=== PATIENT | male | born 1950 | race Caucasian/White ===

== ENCOUNTER 2016-09-11 08:43 | Inpatient (IN) | payer MEDICARE, OTHER ==
--- NOTE | ~2016-09-11 | DS ---
Unit #: [id number] #: [id number] Patient: SONY NO [id number] [address] [place], [place] [address] [id number] MR#: [id number] NAME: SONY NO ROOM: 447 Age: 66 Sex: M Admission Date: 09/11/2016 : 1950 Discharge Date: 09/14/2016 Attending Physician: Melquiades Field M.D. Primary Care Physician: Jose Juan Zavaleta DISCHARGE SUMMARY CHIEF COMPLAINT Right foot deformity. HISTORY OF PRESENT ILLNESS The patient is a 66-year-old male with non-diabetic Charcot neuroarthropathy who has undergone previous attempted right pantalar fusion two years ago complicated by fracture above his plate. He underwent internal fixation of the tibial shaft fracture with a medial plate. The fracture went on to heal but he developed infection of the hardware. The hardware was removed and the patient then developed pseudarthrosis to his right ankle with aggressive displacement of the ankle and heal into valgus. The patient is now to undergo revision and pantalar fusion. He has undergone recent distal tibial bone biopsy to rule out osteomyelitis and all cultures and bone biopsies were negative for chronic infection. HOSPITAL COURSE The patient was taken to the operating room on the date of admission where he underwent hardware removal from the right lower extremity and revision right pantalar fusion using an intramedullary nail and cannulated screws. There were no operative complications. He had a stable postoperative course. He was seen by physical therapy on a daily basis and instructed on how to remain non-weight bearing on the affected side. Dressing was changed on the second postoperative day. Wounds were healing well. Although his dressings smelled of pseudomonas, the wounds did not appear infected. I started him empirically on Levaquin 750 mg p.o. daily for a ten day course. Hematocrit was 30.9% on the second postoperative day. He was ready for discharge on 09/14/2016 for rehabilitation. FINAL DIAGNOSIS Right Charcot ankle. OPERATION PERFORMED Right revision pantalar fusion 09/24/2016. DISPOSITION AND RECOMMENDATIONS 1. The patient is discharged to rehabilitation. He will continue physical therapy and occupational therapy at that location. He will remain strictly non-weight bearing on the right leg for three months. Dressings should be kept clean, dry and intact. The patient should continue elevation of the right leg. 2. Discharge medications are as follows: a) Ventolin inhaler, two puffs q.4 hours p.r.n. shortness of breath. b) Lyrica 150 mg p.o. t.i.d. Unit #: [id number] #: [id number] Patient: SONY NO c) Amitriptyline 50 mg p.o. q.i.d. d) Effexor 150 mg p.o. b.i.d. e) Acidophilous one cap p.o. b.i.d. f) Meclizine 25 mg p.o. t.i.d. g) Zyrtec p.o. daily. h) Diphenhydramine 25 mg p.o. b.i.d. i) Mirapex 0.5 mg p.o. q. h.s. j) Lopressor 50 mg p.o. b.i.d. k) Colace 100 mg p.o. b.i.d. l) Lasix 20 mg p.o. q. a.m. m) Saline nasal spray p.r.n. n) Pravastatin 20 mg p.o. q. h.s. o) Iron 65 mg p.o. b.i.d. p) Polyvinyl alcohol Refresh eyedrops, two drops both eyes p.r.n. q) Modafinil 200 mg p.o. q. a.m. r) Multivitamins, one p.o. daily. s) Percocet 10/325, one or two p.o. q.4 hours p.r.n. pain. t) Omeprazole 20 mg p.o. q. a.m. u) Potassium chloride 20 mEq p.o. daily. v) Baclofen 10 mg p.o. t.i.d. w) Vitamin D 50,000 units p.o. weekly on . x) Vitamin B12 1000 mcg p.o. daily. y) Vicks vapor inhaler as needed. z) Xarelto 10 mg p.o. daily for 12 days. 3. Follow up in my office in ten days for dressing change, suture removal and application of a cast. Dictated by.Albert Field M.D. RT/df TD: 09/13/2016 09:07 JOB #: [id number] DISCHARGE SUMMARY X Melinda Field MD DISCHARGE SUMMARY
--- NOTE | ~2016-09-11 | OR ---
Unit #: [id number] #: [id number] Patient: SONY NO [id number] [address] [place], [place] [address] [id number] I MR#: [id number] NAME: SONY NO ROOM: [facility] Date of Procedure: 09/11/2016 Admission Date: 09/11/2016 Surgeon: Melquiades Field M.D. : 1950 Attending Physician: Melquiades Field M.D. Primary Care Physician: Jose Juan Zavaleta OPERATIVE REPORT PREOPERATIVE DIAGNOSES 1. Right Charcot ankle. 2. Right ankle and foot retained hardware. 3. Right ankle pseudarthrosis. POSTOPERATIVE DIAGNOSES 1. Right Charcot ankle. 2. Right ankle and foot retained hardware. 3. Right ankle pseudarthrosis. PROCEDURES PERFORMED 1. Right revision pantalar fusion (79403). 2. Right foot hardware removal (). ASSISTANTS MD Haider and BENJAMIN Leyva. ANESTHESIA Popliteal saphenous block and general. INDICATIONS FOR SURGERY The patient is a 66-year-old obese male with nondiabetic Charcot neuroarthropathy, who has undergone previous attempted pantalar fusion of the right ankle 2 years ago complicated by fracture above his plate. He then underwent internal fixation of his tibial shaft fracture. The fracture went on to heal, but he developed an infection of his hardware. Hardware was removed and then the patient developed pseudoarthrosis of his right ankle with progressive displacement of the ankle and heel into valgus. The patient is now to undergo revision pantalar fusion. He has undergone recent right distal tibial bone biopsy to rule out osteomyelitis and deep infection. DESCRIPTION OF PROCEDURE The patient was taken to the operating room following popliteal saphenous block to the right leg. He was placed in supine position. General anesthetic was induced. The right leg was identified as the correct operative extremity during the time-out procedure. The IV antibiotic protocol was followed. The right leg was then prepped and draped in the usual sterile fashion. Ioban was placed over a medial distal tibial wound, which was slow in healing following the bone biopsy. The old incisions and scars were used to make our incisions. A lateral longitudinal incision was made over the distal tibia crossing the sinus Unit #: [id number] #: [id number] Patient: SONY NOi to end at the fourth metatarsal base. The subcutaneous tissue was divided and sharp dissection was used until we had exposed the distal tibia. The distal tibia was exposed with subperiosteal dissection. The old medial scar was used to make a medial ankle incision measuring 8 cm. The subcutaneous tissue was divided. The medial malleolus was exposed with subperiosteal dissection. Intraoperative C-arm fluoroscopy documented that there was marked erosion of the lateral tibial plafond and at the medial malleolus was overly long. Therefore, the microsagittal saw was used to resect the distal 2.5 cm of the medial malleolus. A piece of bone was morselized to be utilized for autogenous bone graft later in the case. The aerobic and anaerobic cultures were taken from the ankle joint. There were rice bodies in the joint fluid and I think this did not represent infection, but in fact represented Charcot joint fluid. The power osteotome, curved curettes, and rongeurs were utilized to remove the fibrinous material from both sides of the ankle joint. The talus was completely gone. The fibrinous layer overlying the calcaneus was removed with the power osteotome. The underlying subchondral bone was feathered with the power osteotome. The osteotome was used to level of the distal tibia out of valgus. The joint was then positioned appropriately for fusion of the tibial calcaneal articulation. A 3 cm incision was made in the plantar inferior heel and a sharp guide pin was placed through the calcaneus and then into the center of the distal tibia and into the center of the distal tibial intramedullary canal. Proper pin position was confirmed with C-arm fluoroscopy. The [employer] Valor intramedullary nail system was utilized. The one-step reamer was used and then the distal tibial canal was reamed sequentially up to a diameter of 12.5 mm. A 30 cm long Valor nail measuring 11.5 mm in diameter was then impacted into place. The outrigger drill guide was used to place 2 locking screws through the distal tibial shaft, one was placed in a static position and the second was placed in a dynamic position. The screws were placed from medial to lateral. The outrigger drill guide was then positioned, so that a lateral to medial calcaneal screw was placed. The compression device was used. Prior to using the compression device, 3 mL of Augment platelet derived growth factor calcium phosphate granules were placed in the tibial calcaneal articulation fusion site and all of the autogenous bone graft taken from the medial malleolus was also packed medially and laterally into this fusion site. The compression device was then deployed. A second posterior to anterior calcaneal screw was placed using the outrigger drill guide. Excellent fixation was achieved. The midfoot was then fused to the distal tibia using 2 crossed OrthoHelix 7.0 mm diameter cannulated screw. One screw was placed from distal medial to posterior superior and purchased the posteromedial cortex of the distal tibia. A second screw was placed from the cuboid across the fusion mass into the distal tibia to purchase the posterior cortex. Excellent fixation was achieved. It should be noted that throughout the case, the 3 previously placed cannulated screws were removed with cannulated screwdrivers, one screw was placed in the calcaneus, a second screw was placed in the medial midfoot and a third screw was placed in the lateral mid foot. These were all removed with a cannulated screwdriver under C-arm fluoroscopic control. The tourniquet was then released. Total tourniquet time of 1 hour 50 Unit #: [id number] #: [id number] Patient: SONY NO. Bleeding was controlled with electrocautery. Deep tissues were closed with 2-0 Vicryl. Subcutaneous tissue was closed with 3-0 Vicryl and skin was closed with 3-0 nylon horizontal mattress sutures. Xeroform gauze dressing, sponges, Webril, and a posterior fiberglass splint were applied. The patient was then transported to the recovery room in stable condition. ESTIMATED BLOOD LOSS Minimal. COMPLICATIONS None. SPECIMENS Aerobic and anaerobic cultures of the ankle joint. Dictated by.Barbara Lackey/remberto TD: 09/12/2016 05:29 JOB #: [id number] OPERATIVE REPORT X Melinda Field MD PROCEDURE OPERATIVE NOTE
--- NOTE | ~2016-09-11 | HP ---
Unit #: [id number] #: [id number] Patient: SONY NO [id number] [address] [address] [id number] MR#: [id number] NAME: SONY NO ROOM: Age: Sex: M Admission Date: 09/11/2016 : 1950 Attending Physician: Melquiades Field M.D. Primary Care Physician: Jose Juan Zavaleta HISTORY AND PHYSICAL CHIEF COMPLAINT Right leg pain and deformity. HISTORY OF PRESENT ILLNESS The patient is a 66-year-old male with history of bilateral nondiabetic Charcot neuroarthropathy of the feet and ankles. He has undergone previous right pantalar fusion of the right lower extremity in March 2015. The patient developed a fracture above his plate, which was treated with a long medial plate. The patient then developed infection of his hardware and all hardware had to be removed. The patient had ongoing pain and swelling in the right leg. A combination technetium and white blood cell labeled study showed changes consistent with possible osteomyelitis of the tibia. Three months ago, the patient underwent open biopsy of the tibia, which showed no evidence of osteomyelitis. The patient is now to undergo revision right pantalar fusion with removal of hardware using an intramedullary nail and beaming screws. PAST MEDICAL HISTORY Remarkable for nondiabetic peripheral neuropathy, bilateral Charcot feet, morbid obesity, sleep apnea, hypertension, gastroesophageal reflux disease, and arthritis of both knees. HOME MEDICATIONS 1. Elavil. 2. Aspirin. 3. Baclofen. 4. Benazepril. 5. Hydrochlorothiazide. 6. Clonazepam. 7. Iron. 8. Vitamin D. 9. Colace. 10. Lasix. 11. Lisinopril. 12. Lyrica. 13. Relafen. 14. Omeprazole. 15. Potassium chloride. 16. Oxycodone. 17. Propranolol. 18. Venlafaxine. 19. Ventolin inhaler. ALLERGIES Unit #: [id number] #: [id number] Patient: SONY NO None. PAST SURGICAL HISTORY Bilateral pantalar fusion, right distal tibial shaft ORIF, right ankle hardware removal, right distal tibial bone biopsy, tonsillectomy, and knee replacement. SOCIAL HISTORY The patient is a social drinker. He is a nonsmoker. He is . FAMILY HISTORY Hypertension, arthritis, COPD, and stroke. REVIEW OF SYSTEMS Unremarkable. PHYSICAL EXAMINATION GENERAL: This is an obese, anxious male in no acute distress. HEENT: Pharynx is clear. NECK: Supple without masses. HEART: Reveals a regular sinus rhythm without murmurs or gallops. LUNGS: Clear. ABDOMEN: Soft and nontender without masses or organomegaly. EXTREMITIES: Evaluation of the right lower extremity shows marked heel valgus measuring 20 degrees and forefoot abduction. There is a healing anteromedial wound over the tibial shaft measuring 6 cm x 1 cm in width, which is filled with healthy appearing granulation tissue. Pulses are intact. Sensation is decreased in a global distribution. There is marked edema of the right lower extremity. DIAGNOSTIC STUDIES IMAGING: X-rays of the right ankle taken nonweightbearing show two large diameter screws fixating the midfoot, one from medial and one from lateral. One screw is penetrating up into the region of the distal tibia from the calcaneus. The talus appears to be completely gone. There is erosion of the distal tibia laterally. ADMITTING DIAGNOSIS 1. Right ankle pseudoarthrosis. 2. 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 PLAN The patient will undergo removal of hardware. He will then undergo pantalar fusion using an intramedullary nail, large diameter screws, and beaming screws from the metatarsals into the tibia. This procedure was described along with the risks of bleeding, infection, nerve damage, need for further surgery in the future, prolonged recovery time, deep venous thrombosis, pulmonary embolism, anesthetic complications, amputations, and pseudoarthrosis. He understands the above risks and agrees to proceed. Dictated by Barbara Wilson/chalino TD: 09/11/2016 06:20 Unit #: [id number] #: [id number] Patient: SONY NO JOB #: [id number] HISTORY AND PHYSICAL X Melinda Field MD X HISTORY AND PHYSICAL
--- NOTE | ~2016-09-11 | A ---
[facility] Nutrition Therapy DATE: 09/12/16 Patient: SONY NO Physician: ALEKSANDRA Address: [address] [facility] Room/Bed: [address] [place] [address], Zip: [place] [phone] Admit Date: 09/11/16 Date of : [birth year] Height: 6 0 Weight: 310 141 NUTRITIONAL ASSESSMENT: REASON: PT SEEN FOR DIET EDUCATION PT SCREENED FOR ONE NUTRITION RISK PT RE: PRESSURE ULCER/NON-HEALING WOUND + HIGH BMI NOTE HT: 6'0", WT: 310# (141 KG), BMI: 42.0 RD PROVIDED WRITTEN AND VERBAL WEIGHT LOSS (+LOW SODIUM DIET) + PRESSURE ULCER DIET EDUCATION. RD PROVIDED TIPS TO MANAGE PRESSURE ULCERS AND AIDE IN WEIGHT LOSS. PT VERBALIZED UNDERSTANDING OF THE TOPIC. PT REPORTED NO DIET QUESTIONS AT THIS TIME. RD TO REMAIN AVAILABLE. RECOMMENDATIONS: 1. RECOMMEND TO CHANGE CURRENT DIET ORDER TO CC+HH TO PROMOTE GRADUAL WEIGHT LOSS TOWARDS HEALTHY BMI (19.0-25.0) OR +/-10%IBW RD WILL F/U PER PROTOCOL Respectfully, DEONTE RUGGIERO MS, RD, LD [employer] [facility] cc: client file
[~2016-09-11 08:43] MED LIST: ACIDOPHILUS1 TA1 PO; ALLERGY RELIEF25 MG PO; AMITRYPTYLINE PO; ASPIRIN EC81 M1 PO; B-121000 MC3 PO; BACLOFEN10 MG PO; BENADRYL25 M3 PO; CEFEPIME-D2 GM/50 ML IV; CEFTRIAXONE2 GM IM/IV; EFFEXOR XR PO; EFFEXOR-XR150 MG PO; FORTAZ; INHA; IRON1 TAB PO; K-DUR20 ME2 PO; KETOTIFEN FUMARA5 ML OU; KLONOPIN PO; KLONOPIN1 MG PO; LASIX PO; LASIX20 MG PO; LISINOPRIL10 MG PO; LYRICA PO; METOPROLOL TAR25 MG PO; MODAFINIL200 MG PO; MOTION RELIEF25 MG PO; OMEPRAZOLE20 M2 PO; OXYCODON-ACETA1 EAC1 PO; PERCOCET 7.5-31 EACH PO; PERCOCET5/325 PO; PRAMIPEXOLE PO; PROPRANOLOL HCL80 M1 PO; REFRESH EYE DRO50 E1 OU; REFRESH5 ML OU; ROCEPHIN2 G/VIAL INJ; SALINE NOSE SPR45 M1; SALINE NOSE SPR45 M1 IH; VANCOMYCIN; VANCOMYCIN2 GM/250 M IV; VENLAFAXINE HC150 M1 PO; VENTOLIN INH; VITAMIN D250000 UNIT PO; VITAMIN D50000 UNIT PO; [UNRECOGNIZED DRUG - OTHER]
[2016-09-12 02:48] LABS: HEMATOCRIT 32.4 % (38.0-50.0); HEMOGLOBIN 10.6 gm/dL (13.0-16.0)
[2016-09-13 03:13] LABS: HEMATOCRIT 30.9 % (38.0-50.0); HEMOGLOBIN 10.1 gm/dL (13.0-16.0)
== END 2016-09-14 11:20 | DRG 493 ==
LOC: CSUR 08:43 → CPACUOF 14:30 → C4B 16:45
PROVIDERS: Orthopaedic Surgery
PROC: 0SGH07Z Fusion of Right Tarsal Joint with Autologous Tissue Substitute, Open Approach (ICD-10-PCS; 2016-09-11)
PROC: 0SGH07Z Fusion of Right Tarsal Joint with Autologous Tissue Substitute, Open Approach (ICD-10-PCS; 2016-09-11)
PROC: 0SGH07Z Fusion of Right Tarsal Joint with Autologous Tissue Substitute, Open Approach (ICD-10-PCS; 2016-09-11)
PROC: 0SGF0ZZ (ICD-10-PCS; 2016-09-11)
PROC: 0SGH04Z Fusion of Right Tarsal Joint with Internal Fixation Device, Open Approach (ICD-10-PCS; 2016-09-11)
PROC: 0SGH04Z Fusion of Right Tarsal Joint with Internal Fixation Device, Open Approach (ICD-10-PCS; 2016-09-11)
PROC: 0SGH04Z Fusion of Right Tarsal Joint with Internal Fixation Device, Open Approach (ICD-10-PCS; 2016-09-11)
PROC: 0SPH04Z Removal of Internal Fixation Device from Right Tarsal Joint, Open Approach (ICD-10-PCS; principal; 2016-09-11 12:30)
PROC: 0QBG0ZZ Excision of Right Tibia, Open Approach (ICD-10-PCS; 2016-09-11 12:30)
DX: M96.0 Pseudarthrosis after fusion or arthrodesis (principal); A52.16 Charcot's arthropathy (tabetic); Z68.41 Body mass index [BMI] 40.0-44.9, adult; E66.01 Morbid (severe) obesity due to excess calories; G62.9 Polyneuropathy, unspecified; M87.871 Other osteonecrosis, right ankle; I10 Essential (primary) hypertension; G47.30 Sleep apnea, unspecified; K21.9 Gastro-esophageal reflux disease without esophagitis; M17.0 Bilateral primary osteoarthritis of knee; Z79.82 Long term (current) use of aspirin; M21.071 Valgus deformity, not elsewhere classified, right ankle; Z88.0 Allergy status to penicillin
CPT/HCPCS: 85014; 85018; 87070; 87075; 87205; 94664; 94760; 97116; 97163; 97530; C1713; C1776; G8978-GP; G8979-GP; G8980-GP; J0131; J0330; J2250; J2270; J2405; J2710; J2795; J3010; J3370

== ENCOUNTER → 2016-10-10 | Outpatient (CLI) | payer MEDICARE, OTHER ==
[~2016-10-10] MED LIST changes: +ACIDOPHILUS1 EAC3 PO; +ALBUTEROL17 GM INH; +AMITRIPTYLINE H50 MG PO; +ANTIVERT PO; +ASPIRIN81 M2 PO; +B-121000 MC1 PO; +BACTRIM DS TAB1 EACH PO; +DOCUSATE SODIU100 MG PO; +EFFEXOR XR150 MG PO; +IRON18 MG PO; +KCL PO; +LOPRESSOR PO; +MIRAPEX PO; +MULTIPLE VITAM1 EAC1 PO; +PERCOCET7.5 PO; +PRAVASTATIN SOD20 MG PO; +PRILOSEC PO; +XARELTO10 MG PO; +ZYRTEC PO; +[UNRECOGNIZED DRUG - OTHER]
[2016-10-10 14:14] LABS: HEMATOCRIT 29.1 % (38.0-50.0); HEMOGLOBIN 9.5 gm/dL (13.0-16.0); MEAN CELL VOLUME 86.9 FL (83-96); MEAN CORPUSCULAR HEMOGLOBIN 28.3 PG (28-34); MEAN CORPUSCULAR HGB CONC 32.5 g/dL (30-36); MEAN PLATELET VOLUME 7.3 FL (6.5-11.5); PLATELET COUNT 411 X10e3 (140-420); RED BLOOD COUNT 3.35 X10e (3.90-5.60); RED CELL DISTRIBUTION WIDTH 16.5 % (11.0-15.5); WHITE BLOOD COUNT 9.1 X10e3 (4.0-10.5)
[2016-10-10 14:40] LABS: CALCIUM SERUM 8.3 mg/dL (8.4-10.2); GLOM FILT RATE Estimated 77.5 mL/min (>60); POTASSIUM 4.2 mmol/L (3.5-5.1)
== END | disposition home or self-care (01) ==
LOC: CLAB 13:39
PROVIDERS: Orthopaedic Surgery
DX: Z01.812 Encounter for preprocedural laboratory examination (principal); M14.671 Charcot's joint, right ankle and foot
CPT/HCPCS: 36415; 80048; 85027; 85652; 86140; 86850; 86900; 86901; 87070; 87075; 87077; 87186; 87205

== ENCOUNTER 2016-10-16 09:42 | Inpatient (IN) | payer MEDICARE, OTHER ==
--- NOTE | ~2016-10-16 | OR ---
Unit #: [id number] #: [id number] Patient: SONY NO [id number] [place] [address] [facility]. [place], [place] [address] [id number] I MR#: [id number] NAME: SONY NO ROOM: 454 Date of Procedure: 10/16/2016 Admission Date: 10/16/2016 Surgeon: Melquiades Field M.D. : 1950 Attending Physician: Melquiades Field M.D. Primary Care Physician: Jose Juan Zavaleta OPERATIVE REPORT PREOPERATIVE DIAGNOSES 1. Right foot osteomyelitis. 2. Infected right Charcot foot. POSTOPERATIVE DIAGNOSES 1. Right foot osteomyelitis. 2. Infected right Charcot foot. PROCEDURE PERFORMED Right ejyvj-hbd-fwrw amputation with immediate postoperative cast (55882). ASSISTANTS [place]. ANESTHESIA General. INDICATIONS FOR SURGERY The patient is a 66-year-old male with nondiabetic peripheral neuropathy and history of bilateral Charcot ankles, who underwent several procedures on his right foot culminating in a revision pantalar fusion 5 weeks ago. Unfortunately, this has gone onto develop a deep infection and the patient now has an unsalvageable foot. He is therefore to undergo duabh-tup-jdbp amputation. DESCRIPTION OF PROCEDURE The patient was taken to the operating room and placed in supine position and general anesthetic was induced. The right leg was identified as the correct operative extremity during the time-out procedure. The IV antibiotic protocol was followed. The right leg was then prepped and draped in the usual sterile fashion. The leg was exsanguinated with gravity and the thigh tourniquet inflated to 300 mmHg. A transverse incision was made over the tibia 14 cm distal to the knee joint. It was then extended in a long posterior flap distally. The tibia was exposed with subperiosteal dissection. The sagittal saw was used to make the tibial cut. The anterior portion of the tibia was beveled with the saw because there was an intramedullary nail in place. A Gigli saw was used to make the posterior portion of the tibial cut. The anterior compartment was then divided. The neurovascular bundle was identified and doubly ligated with 0 silk. The fibula was then exposed subperiosteally and cut 2 cm proximal to the tibial cut. The posterior Unit #: [id number] #: [id number] Patient: SONY NO soft tissues were then divided and the leg was removed. The tibial nail was easily telescoped away from the intramedullary canal of the tibia without requiring removal of any screws. The intramedullary canal of the tibia was cultured for aerobic and anaerobic bacteria. The wounds were then copiously irrigated. The peroneal vessels were doubly ligated with 0 silk. The posterior tibial vessels were doubly ligated with 0 silk. The tibial nerve was then traced proximally and cut as high proximally as possible above the level of the tibial cut. The posterior soft tissues were then beveled with the amputation blade. Again, the wounds were irrigated. The posterior muscle fascia was then repaired to the anterior muscle fascia and periosteum of the tibia with multiple 0 Vicryl fezazg-bp-acgsy sutures. A medium Hemovac drain was placed. Subcutaneous tissue was closed with 2-0 Vicryl. The skin was closed with skin adams. Xeroform gauze, dressing, sponges, Webril cast, padding, and a long leg fiberglass cast were then applied. The patient was then awakened in the operating room and transported to the recovery room in stable condition. ESTIMATED BLOOD LOSS 100 mL. COMPLICATIONS None. SPECIMENS 1. Right leg. 2. Aerobic and anaerobic cultures, right tibial intramedullary canal. Dictated byBarbara Wyatt/remberto TD: 10/17/2016 06:07 JOB #: [id number] OPERATIVE REPORT Page 1 of 1 X Melinda Field MD X PROCEDURE OPERATIVE NOTE
--- NOTE | ~2016-10-16 | CO ---
Unit #: [id number] #: [id number] Patient: SONY NO [id number] [address] [place], [place] [address] [id number] I MR#: [id number] NAME: SONY NO ROOM: 454 Age: 66 Sex: M Admission Date: 10/16/2016 : 1950 Attending Physician: Melquiades Field M.D. Primary Care Physician: Jose Juan Zavaleta Consultation Date: 10/16/2016 CONSULTATION REPORT REASON FOR CONSULTATION Medical management. HISTORY OF PRESENT ILLNESS The patient is a 66-year-old male who earlier this afternoon underwent right soezd-egv-tmzj amputation. This was performed by Dr. Field. The patient in the past had been diagnosed secondary to osteomyelitis as well as MRSA deep within the wound. He was admitted under orthopedic service and subsequently underwent the aforementioned amputation earlier today. PAST MEDICAL HISTORY 1. Nondiabetic peripheral neuropathy, bilateral Charcot. 2. Morbid obesity. 3. Sleep apnea. 4. Hypertension. 5. Gastroesophageal reflux disease. 6. Bilateral knee replacements. 7. Osteoarthritis. 8. History of osteomyelitis. 9. History of hardware removal. 10. Bilateral plantar fusion. 11. Right distal tibial shaft open reduction and internal fixation. 12. Right ankle hardware removal. 13. Right distal tibial bone biopsy. 14. Revision of right aforementioned plantar fusion. 15. Tonsillectomy. 16. Knee replacement. SOCIAL HISTORY The patient is . Social alcohol use. No illicit drug use. Lifelong nonsmoker. FAMILY HISTORY Hypertension, arthritis, chronic obstructive pulmonary disease. ALLERGIES No known drug allergies. HOME MEDICATIONS 1. Elavil. 2. Aspirin. 3. Baclofen. Unit #: [id number] #: [id number] Patient: SONY NO 4. Benazepril. 5. Hydrochlorothiazide. 6. Klonopin. 7. Iron. 8. Vitamin D. 9. Lasix. 10. Lyrica. 11. Potassium. 12. Omeprazole. 13. Relafen. 14. Oxycodone. 15. Propranolol. 16. Ventolin. 17. Effexor. REVIEW OF SYSTEMS Please see history of present illness. Twelve points were reviewed and otherwise negative except for those noted positive in the history of present illness. PHYSICAL EXAMINATION GENERAL: The patient is a 66-year-old male who is slightly confused as he has just returned from the operating room. His is present at bedside. VITALS: Temperature 97.8, pulse 79, respiratory rate 20, blood pressure 93/63. HEENT: Head atraumatic. NECK: Supple. LUNGS: Diminished but clear bilaterally. HEART: S1 and S2 without murmur. ABDOMEN: Distension noted. Nontender. EXTREMITIES: Lower extremity exam, his right lower extremity is wrapped and dressed. Left lower extremity showed 1+ edema. No calf tenderness. DIAGNOSTIC STUDIES LABORATORY: Initial lab studies none. ASSESSMENT Initial admission diagnoses 1. Right foot infection/osteomyelitis/MRSA within the joint, status post right cfmah-iyb-zixw amputation. 2. Unsalvageable right lower extremity. 3. Right Charcot angle ankle. 4. Severe morbid obesity. 5. Restrictive lung disease. 6. Numerous orthopedic procedures. 7. Gastroesophageal reflux disease. 8. Bilateral osteoarthritis knees. 9. Hypertension. 10. Obstructive sleep apnea. 11. MRSA within wound. PLAN Management primarily per Dr. Field. Symptom management, pain control. 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 Will check routine laboratory studies in the a.m. Will discuss with Dr. Field if ID consultation is required for any further IV antibiotics. The decision will be made in the morning in consideration the patient now has the unsalvageable right lower extremity currently amputated. His wound Unit #: [id number] #: [id number] Patient: SONY NO will need to be followed up as an outpatient. Thank you, Dr. Field, for this consultation. We will follow this patient along with you through hospital course. Dictated by... Nicolle Vanegas M.D. SHILPA/shante TD: 10/18/2016 14:28 JOB #: [id number] CONSULTATION REPORT Page 1 of 1 X Nicolle Vanegas MD CONSULTATION REPORT
--- NOTE | ~2016-10-16 | EKG ---
PATIENT: SONY NO UNIT #: [id number] Ventricular Rate: 84 BPM Atrial Rate: 84 BPM P-R Interval: 138 ms QRS Duration: 134 ms Q-T Interval: 390 ms QTC Calculation(Bezet): 460 ms P Centenary: 37 degrees Calculated R Centenary: -29 degrees Calculated T Centenary: 12 degrees Diagnosis Line: Sinus rhythm with frequent Premature ventricular Diagnosis Line: complexes Diagnosis Line: Right bundle branch block Diagnosis Line: Possible Inferior infarct (cited on or before Diagnosis Line: 05-JUN-2016) Diagnosis Line: Abnormal ECG Diagnosis Line: When compared with ECG of 05-JUN-2016 13:42, Diagnosis Line: Premature ventricular complexes are now Present Diagnosis Line: Confirmed by CHAD TOMAS MD ([id number]) on 10/19/2016 Diagnosis Line: 6:13:05 AM INTERPRETING MD: GENOVEVA CRAWFORD
--- NOTE | ~2016-10-16 | BMI ---
[facility] Nutrition Therapy DATE: 10/17/16 Patient: SONY NO Physician: ALEKSANDRA Address: [address] [place] [address] Room/Bed: [address] [place] [address], Zip: [place] [address] Admit Date: 10/16/16 Date of : [birth year] Height: 6 0 Weight: 300 136.2 HIGH BMI NOTE: DX: 66 yo male admitted for R infected ankle ANTHROPOMETRICS: Ht: 6'0" Wt: 136.4 kg (300#) BMI: 40.8 DIET: Regular INTERVENTION: 1. Healthy heart RECOMMENDATIONS: 1. Please add healthy heart diet restriction to promote gradual weight loss towards healthy BMI. RD will f/u per protocol. Respectfully, Orquidea Gibbs, Manager Small Business Sandy Garner MS, RD, LD [facility] cc: client file
--- NOTE | ~2016-10-16 | DS ---
Unit #: [id number] #: [id number] Patient: SONY NO [id number] [address] [place], [place] [address] [id number] MR#: [id number] NAME: SONY NO ROOM: 454 Age: 66 Sex: M Admission Date: 10/16/2016 : 1950 Discharge Date: Attending Physician: Melquiades Field M.D. Primary Care Physician: Jose Juan Zavaleta DISCHARGE SUMMARY CHIEF COMPLAINT Right foot infection. HISTORY OF PRESENT ILLNESS The patient is a 66-year-old male who is 5 weeks status post right pantalar revision fusion. He has unfortunately developed a deep infection and now has pus draining from his lateral and medial wounds. He has undergone several procedures for nondiabetic Charcot foot, which unfortunately have all failed. He is now, therefore, to undergo aqixp-wxj-uqpg amputation. He has an unsalvageable foot. PAST MEDICAL HISTORY 1. Morbid obesity. 2. Nondiabetic peripheral neuropathy. 3. Bilateral Charcot foot and ankles. 4. Sleep apnea. 5. Hypertension. 6. Gastroesophageal reflux disease. 7. Knee arthritis, status post bilateral knee replacements. 8. Anxiety. PAST SURGICAL HISTORY 1. Bilateral pantalar fusion. 2. Right distal tibial shaft ORIF. 3. Right ankle hardware removal. 4. Right distal tibial bone biopsy. 5. Revision right pantalar fusion. 6. Tonsillectomy. 7. Knee replacement. ALLERGIES No known drug allergies. HOME MEDICATIONS See medication reconciliation. HOSPITAL COURSE The patient was taken to the operating room on the date of admission and underwent right wylvw-yow-pbmt amputation. There were no operative complications. Intraoperative cultures taken from the intramedullary canal of the tibia have remained negative as of this dictation. Postoperative cast was placed. The patient accidentally pulled out his drain the night of surgery. He progressed slowly in physical therapy and complained of phantom pain. Pain was controlled with Percocet and IV Unit #: [id number] #: [id number] Patient: SONY NO Dilaudid. His hematocrit was 28.2 on the second postoperative day. His cast fit appropriately and he is ready for discharge on the third postoperative day. Although he was offered rehab, the patient insists that he would like to go home. FINAL DIAGNOSES Right uwour-nfh-bziy amputation for deep infected Charcot ankle and foot. DISPOSITION/RECOMMENDATIONS The patient is discharged home. He will keep nonweightbearing on his right leg. The cast will stay intact. He will continue elevation. DISCHARGE MEDICATIONS 1. Discharge medications remain the same as his home medications. 2. Xarelto 10 mg p.o. daily for 2 weeks postoperative. 3. Percocet 10/325 mg 1-2 p.o. q.4-6 h. p.r.n. pain. Dispensed 50. 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 Dictated by.Barbara Lackey/shante TD: 10/18/2016 08:52 JOB #: [id number] DISCHARGE SUMMARY Page 1 of 1 X Melinda Field MD X DISCHARGE SUMMARY
--- NOTE | ~2016-10-16 | HP ---
Unit #: [id number] #: [id number] Patient: SONY NO [id number] [address] [place], [place] [address] [id number] MR#: [id number] NAME: SONY NO ROOM: Age: 66 Sex: M Admission Date: 10/16/2016 : 1950 Attending Physician: Melquiades Field M.D. Primary Care Physician: Jose Juan Zavaleta HISTORY AND PHYSICAL CHIEF COMPLAINT Right foot infection. HISTORY OF PRESENT ILLNESS The patient is five weeks status post right pantalar revision fusion. He now has an opened draining wound with extension deep into the joint with cultures positive for methicillin-resistant Staphylococcus aureus. He is, therefore, to undergo mmwtf-gnq-saff amputation. PAST MEDICAL HISTORY Nondiabetic peripheral neuropathy, bilateral Charcot feet, morbid obesity, sleep apnea, hypertension, gastroesophageal reflux disease and knee arthritis with bilateral knee replacements. PAST SURGICAL HISTORY Bilateral pantalar fusion, right distal tibial shaft ORIF, right ankle hardware removal, right distal tibial bone biopsy, revision right pantalar fusion, tonsillectomy and knee replacement. SOCIAL HISTORY The patient is . He is a social drinker. He is a nonsmoker. FAMILY HISTORY Hypertension, arthritis, COPD, stroke. ALLERGIES None. HOME MEDICATIONS 1. Elavil. 2. Aspirin. 3. Baclofen. 4. Benazepril. 5. Hydrochlorothiazide. 6. Clonazepam. 7. Iron. 8. Vitamin D. 9. Colace. 10. Lasix. 11. Lisinopril. 12. Lyrica. 13. Relafen. 14. Omeprazole. 15. Potassium. Unit #: [id number] #: [id number] Patient: SONY NO 16. Oxycodone. 17. Propranolol. 18. Venlafaxine. 19. Ventolin inhaler. REVIEW OF SYSTEMS Unremarkable. PHYSICAL EXAMINATION GENERAL APPEARANCE: This is an obese anxious male in no acute distress. HEENT: Pharynx is clear. NECK: Supple without masses. HEART: A regular sinus rhythm without murmurs or gallops. LUNGS: Clear. ABDOMEN: Soft and nontender without masses or organomegaly. EXTREMITIES: Evaluation of the right lower extremity shows 3+ swelling. The patient has a 7 cm x 3 cm open wound in his sinus tarsi which is draining purulent material. His medial longitudinal incision is healed. Sensation is decreased in a global distribution. Pulses are intact. DIAGNOSTIC STUDIES IMAGING: Radiographs show an indwelling intramedullary nail with multiple large diameter cannulated screws and complete dissolution of his talus. ADMITTING DIAGNOSES 1. Infected right ankle joint pantalar fusion. 2. Unsalvageable right lower extremity. 3. Right Charcot ankle. PLAN The patient is admitted for befsn-ovs-ywez amputation. This procedure was described in detail along with the risks of bleeding, infection, nerve damage, need for further surgery in the failure, failure to heal, persistent infection, need for higher level amputation, failure to achieve proper fitting of a prosthesis. He understands the above risks and agrees to proceed. Dictated by Barbara Wilson/segundo TD: 10/16/2016 06:25 JOB #: [id number] HISTORY AND PHYSICAL Page 1 of 1 X Melinda Field MD X HISTORY AND PHYSICAL
[~2016-10-16 09:42] MED LIST changes: -ACIDOPHILUS1 EAC3 PO; -ALBUTEROL17 GM INH; -AMITRIPTYLINE H50 MG PO; -ANTIVERT PO; -ASPIRIN81 M2 PO; -B-121000 MC1 PO; -BACTRIM DS TAB1 EACH PO; -DOCUSATE SODIU100 MG PO; -EFFEXOR XR150 MG PO; -IRON18 MG PO; -KCL PO; -LOPRESSOR PO; -MIRAPEX PO; -MULTIPLE VITAM1 EAC1 PO; -PERCOCET7.5 PO; -PRAVASTATIN SOD20 MG PO; -PRILOSEC PO; -XARELTO10 MG PO; -ZYRTEC PO; -[UNRECOGNIZED DRUG - OTHER]
[2016-10-16] MEDS ORDERED: PRAVASTATIN SOD20 MG PO (12:42)
[2016-10-16] MEDS ORDERED: ZYRTEC PO (12:43)
[2016-10-16] MEDS ORDERED: LASIX20 MG PO (14:15)
[2016-10-16] MEDS ORDERED: PERCOCET7.5 PO (14:17)
[2016-10-16] MEDS ORDERED: DOCUSATE SODIU100 MG PO (14:22)
[2016-10-16] MEDS ORDERED: SALINE NOSE SPR45 M1 (14:23)
[2016-10-16] MEDS ORDERED: BACTRIM DS TAB1 EACH PO (14:39)
[2016-10-16] MEDS ORDERED: EFFEXOR XR150 MG PO (17:40)
[2016-10-16] MEDS ORDERED: LOPRESSOR PO (17:41)
[2016-10-16] MEDS ORDERED: [UNRECOGNIZED DRUG - OTHER] (17:50)
[2016-10-16] MEDS ORDERED: MULTIPLE VITAM1 EAC1 PO (17:52)
[2016-10-16] MEDS ORDERED: PRILOSEC PO (23:09)
[2016-10-16] MEDS ORDERED: ASPIRIN81 M2 PO (23:09)
[2016-10-16] MEDS ORDERED: AMITRIPTYLINE H50 MG PO (23:10)
[2016-10-16] MEDS ORDERED: ALBUTEROL17 GM INH (23:10)
[2016-10-16] MEDS ORDERED: ACIDOPHILUS1 EAC3 PO (23:11)
[2016-10-16] MEDS ORDERED: KCL PO (23:12)
[2016-10-16] MEDS ORDERED: ANTIVERT PO (23:13)
[2016-10-16] MEDS ORDERED: BACLOFEN10 MG PO (23:13)
[2016-10-16] MEDS ORDERED: LYRICA PO (23:14)
[2016-10-16] MEDS ORDERED: MIRAPEX PO (23:14)
[2016-10-16] MEDS ORDERED: IRON18 MG PO (23:15)
[2016-10-16] MEDS ORDERED: B-121000 MC1 PO (23:15)
[2016-10-17 03:37] LABS: BASOPHIL% 0.3 % (0-2.5); EOSINOPHIL% 0.2 % (0.0-7.0); HEMATOCRIT 28.7 % (38.0-50.0); LYMPHOCYTE% 16.4 % (17.0-45.0); MEAN CELL VOLUME 88.4 FL (83-96); MEAN CORPUSCULAR HEMOGLOBIN 27.8 PG (28-34); MEAN CORPUSCULAR HGB CONC 31.4 g/dL (30-36); MEAN PLATELET VOLUME 7.6 FL (6.5-11.5); MONOCYTE% 8.2 % (3.0-12.0); NEUTROPHIL# 9.2 X10e3 (1.5-7.1); NEUTROPHIL% 74.9 % (40-75); PLATELET COUNT 382 X10e3 (140-420); RED BLOOD COUNT 3.25 X10e (3.90-5.60); RED CELL DISTRIBUTION WIDTH 16.9 % (11.0-15.5); WHITE BLOOD COUNT 12.2 X10e3 (4.0-10.5)
[2016-10-17 03:41] LABS: DIFF IND NO
[2016-10-17 04:05] LABS: ALBUMIN SERUM 2.9 g/dL (3.5-5.0); BILIRUBIN,TOTAL 0.5 mg/dL (0.2-2.0); CALCIUM SERUM 8.6 mg/dL (8.4-10.2); CREATININE SERUM 0.9 mg/dL (0.6-1.4); GLOM FILT RATE Estimated 88.1 mL/min (>60); POTASSIUM 4.5 mmol/L (3.5-5.1); PROTEIN TOTAL SERUM 7.4 g/dL (6.0-8.3)
[2016-10-18 03:07] LABS: HEMATOCRIT 28.2 % (38.0-50.0)
[2016-10-18 03:37] LABS: CALCIUM SERUM 8.3 mg/dL (8.4-10.2); CREATININE SERUM 0.8 mg/dL (0.6-1.4); GLOM FILT RATE Estimated 92.5 mL/min (>60); MAGNESIUM 2.1 mg/dL (1.6-3.0)
[2016-10-19 03:25] LABS: BASOPHIL# 0.1 X10e3 (0-0.3); BASOPHIL% 0.8 % (0-2.5); DIFF IND NO; EOSINOPHIL# 0.4 X10e3 (0-0.7); EOSINOPHIL% 4.8 % (0.0-7.0); HEMATOCRIT 30.3 % (38.0-50.0); HEMOGLOBIN 9.6 gm/dL (13.0-16.0); LYMPHOCYTE# 1.8 X10e3 (1.0-3.5); LYMPHOCYTE% 24.8 % (17.0-45.0); MEAN CELL VOLUME 86.8 FL (83-96); MEAN CORPUSCULAR HEMOGLOBIN 27.6 PG (28-34); MEAN CORPUSCULAR HGB CONC 31.8 g/dL (30-36); MEAN PLATELET VOLUME 7.5 FL (6.5-11.5); MONOCYTE# 0.8 X10e3 (0-1.0); MONOCYTE% 10.7 % (3.0-12.0); NEUTROPHIL# 4.3 X10e3 (1.5-7.1); NEUTROPHIL% 58.9 % (40-75); PLATELET COUNT 346 X10e3 (140-420); RED CELL DISTRIBUTION WIDTH 16.8 % (11.0-15.5); WHITE BLOOD COUNT 7.4 X10e3 (4.0-10.5)
[2016-10-19 03:54] LABS: BUN/CREATININE RATIO 18.75; CALCIUM SERUM 8.5 mg/dL (8.4-10.2); CREATININE SERUM 0.8 mg/dL (0.6-1.4); GLOM FILT RATE Estimated 92.5 mL/min (>60); POTASSIUM 3.6 mmol/L (3.5-5.1)
[2016-10-19] MEDS ORDERED: XARELTO10 MG PO (09:18)
[2016-10-19] MEDS ORDERED: PERCOCET 7.5-31 EACH PO (09:40)
== END 2016-10-19 13:01 | disposition home health service (06) | DRG 857 ==
LOC: CSUR 09:42 → CPACUOF 11:30 → C4B 16:15
PROVIDERS: Family Medicine; Nurse Practitioner; Orthopaedic Surgery
PROC: 0Y6H0Z1 Detachment at Right Lower Leg, High, Open Approach (ICD-10-PCS; principal; 2016-10-16 12:00)
DX: T81.4XXA Infection following a procedure, initial encounter (principal); M86.9 Osteomyelitis, unspecified; E66.01 Morbid (severe) obesity due to excess calories; G62.9 Polyneuropathy, unspecified; J98.4 Other disorders of lung; I10 Essential (primary) hypertension; B95.62 Methicillin resistant Staphylococcus aureus infection as the cause of diseases classified elsewhere; M14.672 Charcot's joint, left ankle and foot; M14.671 Charcot's joint, right ankle and foot; Z68.36 Body mass index [BMI] 36.0-36.9, adult; G47.30 Sleep apnea, unspecified; K21.9 Gastro-esophageal reflux disease without esophagitis; F41.9 Anxiety disorder, unspecified; Z96.653 Presence of artificial knee joint, bilateral; Z82.49 Family history of ischemic heart disease and other diseases of the circulatory system; Z83.6 Family history of other diseases of the respiratory system; Z82.3 Family history of stroke; M79.604 Pain in right leg; D53.9 Nutritional anemia, unspecified; F32.9 Major depressive disorder, single episode, unspecified
CPT/HCPCS: 80048; 80053; 82607; 83036; 83735; 85014; 85018; 85025; 87070; 87075; 87205; 88307; 93005; 94760; 94761; 97110; 97163; 97530; G8978-GP; G8979-GP; J1170; J2250; J2270; J3010; J3370

== ENCOUNTER 2016-10-21 12:48 | Emergency (ER) | payer MEDICARE, OTHER ==
[~2016-10-21 12:48] MED LIST changes: +ACIDOPHILUS1 EAC3 PO; +ALBUTEROL17 GM INH; +AMITRIPTYLINE H50 MG PO; +ANTIVERT PO; +ASPIRIN81 M2 PO; +B-121000 MC1 PO; +BACTRIM DS TAB1 EACH PO; +DOCUSATE SODIU100 MG PO; +EFFEXOR XR150 MG PO; +IRON18 MG PO; +KCL PO; +LOPRESSOR PO; +MIRAPEX PO; +MULTIPLE VITAM1 EAC1 PO; +PERCOCET7.5 PO; +PRAVASTATIN SOD20 MG PO; +PRILOSEC PO; +XARELTO10 MG PO; +ZYRTEC PO; +[UNRECOGNIZED DRUG - OTHER]
== END 2016-10-21 13:46 | disposition home or self-care (01) ==
LOC: CED 12:48
DX: T84.032A Mechanical loosening of internal right knee prosthetic joint, initial encounter (principal); I10 Essential (primary) hypertension; G62.9 Polyneuropathy, unspecified; Z88.0 Allergy status to penicillin; Z88.8 Allergy status to other drugs, medicaments and biological substances; Z79.899 Other long term (current) drug therapy
CPT/HCPCS: 99282

== ENCOUNTER 2016-11-16 11:40 | Emergency (ER) | payer MEDICARE, OTHER ==
--- NOTE | ~2016-11-16 | CR253 ---
[facility] A Service of [facility] & [facility] RADIOLOGY TEXT RESULTS PATIENT: SONY NO LOCATION: [facility] : [birth year] UNIT #: [id number] AGE: [address]: Chance Andrea MD SEX: M ORDER DR: [id number] [facility] [address] [facility]. [place], [place] [address] [id number] MR#: [id number] Acc #: [id number] NAME: OSNY NO : 1950 SEX: M STUDY DATE/TIME: 11/16/2016 12:45 UNIT: [place] ROOM: STUDY DESCRIPTION: CR Tibia and Fibula 2 Views Rt Attending Physician: Chance Andrea M.D. Ordering Physician: Power Pelayo M.D. Primary Care Physician: No Primary Care Physician MEDICAL IMAGING REPORT This report is preliminary unless electronic signature is present EXAM Right tibia and fibula, 2 views. HISTORY Status post amputation with 2 day history of redness and swelling at the stump. FINDINGS There is soft tissue swelling. There is some mild new bone formation around the distal end of the tibia and fibula, but no aggressive-appearing bone erosion or destruction. Dictated by... Jarod Simpson M.D. THIS IS AN ELECTRONICALLY VERIFIED REPORT Jarod Simpson M.D. at 11/21/2016 1:25 PM JOB/terell TD: 11/16/2016 18:47 JOB #: [id number] MEDICAL IMAGING REPORT Page 1 of 1 COPY
[2016-11-16 12:57] LABS: BASOPHIL% 0.5 % (0-2.5); EOSINOPHIL# 0.1 X10e3 (0-0.7); EOSINOPHIL% 1.6 % (0.0-7.0); HEMATOCRIT 37.4 % (38.0-50.0); LYMPHOCYTE# 2.9 X10e3 (1.0-3.5); LYMPHOCYTE% 32.2 % (17.0-45.0); MEAN CELL VOLUME 89.1 FL (83-96); MEAN CORPUSCULAR HEMOGLOBIN 28.6 PG (28-34); MEAN CORPUSCULAR HGB CONC 32.1 g/dL (30-36); MEAN PLATELET VOLUME 7.8 FL (6.5-11.5); MONOCYTE# 0.7 X10e3 (0-1.0); MONOCYTE% 8.2 % (3.0-12.0); NEUTROPHIL# 5.1 X10e3 (1.5-7.1); NEUTROPHIL% 57.5 % (40-75); PLATELET COUNT 251 X10e3 (140-420); RED CELL DISTRIBUTION WIDTH 18.1 % (11.0-15.5); WHITE BLOOD COUNT 8.9 X10e3 (4.0-10.5)
[2016-11-16 13:01] LABS: DIFF IND NO
[2016-11-16 13:27] LABS: ALBUMIN SERUM 3.5 g/dL (3.5-5.0); BILIRUBIN, DIRECT 0.1 mg/dL (0.0-0.2); BILIRUBIN,INDIRECT 0.4 mg/dL (0.0-0.9); BILIRUBIN,TOTAL 0.5 mg/dL (0.2-2.0); BUN/CREATININE RATIO 27.5; CALCIUM SERUM 8.4 mg/dL (8.4-10.2); CREATININE SERUM 0.8 mg/dL (0.6-1.4); GLOM FILT RATE Estimated 92.5 mL/min (>60); POTASSIUM 4.1 mmol/L (3.5-5.1); PROTEIN TOTAL SERUM 7.4 g/dL (6.0-8.3)
[2016-11-16] MEDS ORDERED: ASPIRIN EC81 M1 PO (13:55)
[2016-11-16 14:11] LABS: PARTIAL THROMBOPLASTIN TIME 26.6 SECONDS (23.5-31.3); PROTHROMBIN TIME (PATIENT) 10.4 SECONDS (9.6-11.5)
== END 2016-11-16 16:50 | disposition home or self-care (01) ==
LOC: CED 11:40
PROVIDERS: Emergency Medicine
DX: L03.115 Cellulitis of right lower limb (principal); I10 Essential (primary) hypertension; J45.909 Unspecified asthma, uncomplicated; D64.9 Anemia, unspecified; Z79.899 Other long term (current) drug therapy; Z88.0 Allergy status to penicillin
CPT/HCPCS: 73590; 80048; 80076; 85025; 85610; 85730; 87040; 99283; J3370